=== PATIENT | male | born 1970 | race Caucasian/White ===

== ENCOUNTER → 2016-11-02 | Outpatient (CLI) | payer MEDICARE, BC ==
[2015-11-02 09:50] VITALS: BP 119/67
[~2016-11-02] MED LIST: ATORVASTATIN CA40 MG; FISH OIL500 M2; FLEXERIL 1010 MG/TAB; GABAPENTIN100 MG; INSULIN-HUMA100 U/ML; SYNTHROID25 MCG; VITAMIN D31000 IU
== END ==
LOC: LAB 11:23
DX: N52.9 Male erectile dysfunction, unspecified (principal); R39.15 Urgency of urination

== ENCOUNTER → 2017-07-25 | Outpatient (CLI) | payer MEDICARE, BC ==
[2015-11-02 09:50] VITALS: BP 119/67
[2017-07-25 10:42] LABS: BASO # 0.1 (0.02-0.10); HEMATOCRIT 43.7 % (42.0-52.0); HEMOGLOBIN 14.8 g/dL (13.5-18.0); MEAN CELL VOLUME 97 fl (78-100); MEAN CORPUSCULAR HEMOGLOBIN 33 pg (27-31); MEAN CORPUSCULAR HGB CONC 34 g/dL (33-37); MEAN PLATELET VOLUME 10.1 fl (7.4-10.4); MONO # 1.2 (0.20-0.80); PLATELET COUNT 289 K/mm3 (130-400); RED BLOOD COUNT 4.49 M/mm3 (4.20-5.60); RED CELL DISTRIBUTION WIDTH 13.2 % (11.5-14.5); WHITE BLOOD COUNT 13.7 K/mm3 (4.8-10.8)
[2017-07-25 10:46] LABS: NEU # 10.5 (1.40-6.50)
== END ==
LOC: LAB 10:21
PROVIDERS: Family Medicine
DX: R53.82 Chronic fatigue, unspecified (principal); N52.9 Male erectile dysfunction, unspecified

== ENCOUNTER 2017-11-23 18:21 | Emergency (ER) | payer MEDICARE, BC ==
[2017-11-23 18:55] LABS: HEMATOCRIT 45.5 % (42.0-52.0); HEMOGLOBIN 15.5 g/dL (13.5-18.0); MEAN CELL VOLUME 97 fl (78-100); MEAN CORPUSCULAR HEMOGLOBIN 33 pg (27-31); MEAN CORPUSCULAR HGB CONC 34 g/dL (33-37); PLATELET COUNT 310 K/mm3 (130-400); RED BLOOD COUNT 4.68 M/mm3 (4.20-5.60); RED CELL DISTRIBUTION WIDTH 12.6 % (11.5-14.5)
[2017-11-23 19:04] LABS: ALBUMIN 4.8 g/dL (3.5-5.0); CALCIUM 9.8 mg/dL (8.4-10.2); POTASSIUM 5.4 mmol/L (3.6-5.0); TOTAL BILIRUBIN 1.3 mg/dL (0.2-1.3)
[2017-11-23 19:15] LABS: WHITE BLOOD COUNT 28.1 K/mm3 (4.8-10.8)
[2017-11-23 19:16] LABS: LYMPHOCYTE 4 % (20-51); MONOCYTE 8 % (3-10); NEUTROPHILS 88 % (42-75)
[2017-11-23 20:49] LABS: URINE APPEARANCE CLEAR; URINE COLOR YELLOW; URINE PROTEIN(semi-quant) NEGATIVE (NEGATIVE)
[2017-11-23 20:50] LABS: URINE BILIRUBIN NEGATIVE (NEGATIVE); URINE BLOOD NEGATIVE (NEGATIVE); URINE KETONE 3+ (NEGATIVE); URINE LEUKOCYTE ESTERASE NEGATIVE (NEGATIVE); URINE NITRATE NEGATIVE (NEGATIVE); URINE UROBILINOGEN NORMAL (NORMAL); URINE WBC 0-1 /hpf (0-3)
[2017-11-23 22:15] VITALS: BP 96/69
[2017-11-23] MEDS ORDERED: LIPITOR 40MG TA40 MG PO (23:15)
[2017-11-23] MEDS ORDERED: LEVOTHYROXINE125 MCG PO (23:15)
[2017-11-23] MEDS ORDERED: SUNMARK VITAMIN1 TAB PO (23:16)
[2017-11-23] MEDS ORDERED: LYRICA 150MG C150 MG PO (23:16)
[2017-11-23] MEDS ORDERED: VITAMIN D31000 IU PO (23:16)
[2017-11-23] MEDS ORDERED: AFREZZA1 EACH (23:18)
== END 2017-11-23 22:15 | disposition other institution (70) ==
LOC: ED 18:21
PROVIDERS: Family Medicine
DX: E10.10 Type 1 diabetes mellitus with ketoacidosis without coma (principal); Z96.41 Presence of insulin pump (external) (internal); Z79.4 Long term (current) use of insulin; F17.200 Nicotine dependence, unspecified, uncomplicated
CPT/HCPCS: J0696; J1815; J2405; J7030

== ENCOUNTER → 2018-04-24 | Outpatient (CLI) | payer MEDICARE, BC ==
[~2018-04-24] VITALS: Ht 188 cm; Wt 74.8 kg
[~2018-04-24] MED LIST changes: +AFREZZA1 EACH; +AMBIEN10 MG PO; +ANUSOL HC CREAM30 GM TP; +CYCLOBENZAPRINE10 M1 PO; +DESONIDE TP; +GABAPENTIN100 MG PO; +IMITREX100 M1 PO; +LEVOTHYROXINE125 MCG PO; +LIDOCAINE PAIN1 EACH TP; +LIPITOR 40MG TA40 MG PO; +LYRICA 150MG C150 MG PO; +SUNMARK VITAMIN1 TAB PO; +VIAGRA50 M1 PO; +VITAMIN D31000 IU PO
[2018-04-24 09:44] LABS: CALCIUM 9.2 mg/dL (8.4-10.2); POTASSIUM 4.1 mmol/L (3.6-5.0)
[2018-04-24 10:51] VITALS: BP 130/94
== END ==
LOC: AMSURD 09:11
PROVIDERS: Physician Assistant
DX: R00.0 Tachycardia, unspecified (principal); R00.2 Palpitations; E10.49 Type 1 diabetes mellitus with other diabetic neurological complication

== ENCOUNTER → 2018-09-06 | Outpatient (CLI) | payer MEDICARE, BC ==
[2018-04-24 10:51] VITALS: BP 130/94
== END ==
LOC: LAB 11:48
DX: Z12.5 Encounter for screening for malignant neoplasm of prostate (principal); R35.1 Nocturia; R39.12 Poor urinary stream; K90.9 Intestinal malabsorption, unspecified

== ENCOUNTER → 2018-12-02 | Outpatient (CLI) | payer MEDICARE, BC ==
[2018-04-24 10:51] VITALS: BP 130/94
== END ==
LOC: RAD 10:54
DX: M26.51 Abnormal jaw closure (principal); R22.1 Localized swelling, mass and lump, neck

== ENCOUNTER 2019-01-19 09:24 | Emergency (ER) | payer MEDICARE, BC ==
[~2019-01-19] VITALS: Ht 188 cm; Wt 78.2 kg
[2019-01-19 10:00] LABS: HEMATOCRIT 42.3 % (42.0-52.0); HEMOGLOBIN 14.5 g/dL (13.5-18.0); MEAN CELL VOLUME 96 fl (78-100); MEAN CORPUSCULAR HEMOGLOBIN 33 pg (27-31); MEAN CORPUSCULAR HGB CONC 34 g/dL (33-37); MEAN PLATELET VOLUME 10.3 fl (7.4-10.4); PLATELET COUNT 261 K/mm3 (130-400); RED BLOOD COUNT 4.41 M/mm3 (4.20-5.60); RED CELL DISTRIBUTION WIDTH 12.5 % (11.5-14.5); WHITE BLOOD COUNT 16.6 K/mm3 (4.8-10.8)
[2019-01-19 10:07] LABS: ALBUMIN 3.8 g/dL (3.5-5.0); POTASSIUM 3.9 mmol/L (3.5-5.1)
[2019-01-19 10:10] LABS: TOTAL PROTEIN 6.1 g/dL (6.4-8.3)
[2019-01-19 10:11] LABS: TOTAL BILIRUBIN 0.7 mg/dL (0.2-1.2)
[2019-01-19 10:18] LABS: BAND 3 % (0-10); LYMPHOCYTE 11 % (20-51); MONOCYTE 4 % (3-10); NEUTROPHILS 82 % (42-75)
[2019-01-19 15:53] LABS: URINE APPEARANCE CLEAR; URINE BILIRUBIN NEGATIVE (NEGATIVE); URINE BLOOD NEGATIVE (NEGATIVE); URINE COLOR YELLOW; URINE GLUCOSE NEGATIVE (NEGATIVE); URINE KETONE NEGATIVE (NEGATIVE); URINE LEUKOCYTE ESTERASE NEGATIVE (NEGATIVE); URINE MUCUS PRESENT (NOT PRESENT); URINE NITRATE NEGATIVE (NEGATIVE); URINE PROTEIN(semi-quant) TRACE mg/dL (NEGATIVE); URINE UROBILINOGEN NORMAL (NORMAL)
[2019-01-19 18:13] VITALS: BP 96/49
== END 2019-01-19 18:13 | disposition home or self-care (01) ==
LOC: ED 09:24
PROVIDERS: Family Medicine
DX: E86.9 Volume depletion, unspecified (principal); R19.7 Diarrhea, unspecified; E10.9 Type 1 diabetes mellitus without complications; M79.7 Fibromyalgia; G43.909 Migraine, unspecified, not intractable, without status migrainosus; F17.210 Nicotine dependence, cigarettes, uncomplicated; Z98.890 Other specified postprocedural states
CPT/HCPCS: J7030

== ENCOUNTER → 2019-01-24 | Outpatient (CLI) | payer MEDICARE, BC ==
[~2019-01-24] VITALS: Ht 188 cm; Wt 78.2 kg
[2019-01-24 14:57] LABS: BASO # 0.1 (0.02-0.10); LYMPH# 1.6 (1.50-4.00); MEAN CELL VOLUME 96 fl (78-100); MEAN CORPUSCULAR HEMOGLOBIN 33 pg (27-31); MEAN CORPUSCULAR HGB CONC 34 g/dL (33-37); MEAN PLATELET VOLUME 10.1 fl (7.4-10.4); NEU # 6.1 (1.40-6.50); PLATELET COUNT 256 K/mm3 (130-400); RED CELL DISTRIBUTION WIDTH 12.7 % (11.5-14.5); WHITE BLOOD COUNT 8.8 K/mm3 (4.8-10.8)
[2019-01-24 15:02] VITALS: BP 113/66
[2019-01-24 15:03] VITALS: BP 113/66
[2019-01-24 15:06] LABS: POTASSIUM 4.4 mmol/L (3.5-5.1)
[2019-01-24 15:07] LABS: CALCIUM 8.7 mg/dL (8.3-10.5)
[2019-01-24 15:09] LABS: TOTAL PROTEIN 6.5 g/dL (6.4-8.3)
[2019-01-24 15:10] LABS: TOTAL BILIRUBIN 0.4 mg/dL (0.2-1.2)
[2019-01-24 16:37] VITALS: BP 105/62
[2019-01-28 00:06] LABS: ADRENOCORTICOTROPIC HORMONE <5 pg/mL (5-27)
== END ==
LOC: AMSURD 14:14 → LAB 14:14
PROVIDERS: Internal Medicine
DX: E10.49 Type 1 diabetes mellitus with other diabetic neurological complication (principal); E31.0 Autoimmune polyglandular failure
CPT/HCPCS: J0834

== ENCOUNTER → 2019-02-20 | Outpatient (CLI) | payer MEDICARE, BC ==
[2019-01-24 16:37] VITALS: BP 105/62
[2019-02-20 14:27] LABS: POTASSIUM 3.9 mmol/L (3.5-5.1)
[2019-02-20 14:28] LABS: CALCIUM 9.1 mg/dL (8.3-10.5)
== END ==
LOC: LAB 14:07
PROVIDERS: Internal Medicine
DX: E10.49 Type 1 diabetes mellitus with other diabetic neurological complication (principal); R00.2 Palpitations; R00.0 Tachycardia, unspecified

== ENCOUNTER → 2020-08-18 | Outpatient (CLI) | payer MEDICARE, BC ==
[2019-01-24 16:37] VITALS: BP 105/62
== END ==
LOC: LAB 09:52
DX: R39.12 Poor urinary stream (principal); Z80.42 Family history of malignant neoplasm of prostate

== ENCOUNTER → 2021-07-14 | Outpatient (CLI) | payer MEDICARE, BC ==
[2021-07-14 15:06] LABS: PH-URINE 5.5 (5.0 - 8.0); URINE APPEARANCE CLEAR; URINE BILIRUBIN NEGATIVE (NEGATIVE); URINE BLOOD NEGATIVE (NEGATIVE); URINE COLOR YELLOW; URINE GLUCOSE NEGATIVE (NEGATIVE); URINE KETONE NEGATIVE (NEGATIVE); URINE LEUKOCYTE ESTERASE NEGATIVE (NEGATIVE); URINE NITRATE NEGATIVE (NEGATIVE); URINE PROTEIN(semi-quant) TRACE (NEGATIVE); URINE UROBILINOGEN NORMAL (NORMAL)
== END ==
LOC: LAB 13:31
PROVIDERS: Urology
DX: R39.12 Poor urinary stream (principal); Z80.42 Family history of malignant neoplasm of prostate

== ENCOUNTER 2022-04-14 15:12 | Outpatient (RCR) | payer MEDICARE, BC ==
[2022-03-20 14:25] VITALS: BP 125/80
[~2022-04-14] VITALS: Ht 188 cm; Wt 81.8 kg
[~2022-04-14 15:12] MED LIST changes: +AMOXICILLIN AND1 TA2 PO; +FAMOTIDINE20 MG PO; +INSULIN HUMA100 U/ML; +LEVOTHYROXINE112 MCG PO; +NEURONTIN100 M1 PO
[2022-04-14 15:26] VITALS: BP 122/82
== END 2022-04-18 | disposition home or self-care (01) ==
LOC: AMSURD
DX: S61.251D Open bite of left index finger without damage to nail, subsequent encounter (principal); W55.01XD Bitten by cat, subsequent encounter

== ENCOUNTER 2022-05-20 06:54 | Emergency (ER) | payer MEDICARE, BC ==
[~2022-05-20] VITALS: Ht 188 cm; Wt 87.1 kg
[2022-05-20] MEDS ORDERED: FISH OIL1 IU PO (07:06)
[2022-05-20] MEDS ORDERED: B COMPLEX1 EACH PO (07:06)
[2022-05-20 07:49] LABS: BASO # 0.06 K/mm3 (0.02-0.10); HEMATOCRIT 42.9 % (42.0-52.0); HEMOGLOBIN 14.8 g/dL (13.5-18.0); MEAN CELL VOLUME 96 fl (78-100); MEAN CORPUSCULAR HEMOGLOBIN 33 pg (27-31); MEAN CORPUSCULAR HGB CONC 35 g/dL (33-37); MEAN PLATELET VOLUME 9.4 fl (7.4-10.4); MONO # 0.73 K/mm3 (0.20-0.80); NEU # 5.56 K/mm3 (1.40-6.50); PLATELET COUNT 279 K/mm3 (130-400); RED BLOOD COUNT 4.45 M/mm3 (4.20-5.60); RED CELL DISTRIBUTION WIDTH 12.3 % (11.5-14.5); WHITE BLOOD COUNT 7.7 K/mm3 (4.8-10.8)
[2022-05-20 09:22] VITALS: BP 110/88
== END 2022-05-20 09:23 | disposition home or self-care (01) ==
LOC: ED 06:54
PROVIDERS: Family Medicine
DX: M25.512 Pain in left shoulder (principal); E10.9 Type 1 diabetes mellitus without complications